=== PATIENT | male | born 1955 | race Caucasian/White ===

== ENCOUNTER 2017-08-17 13:01 | Emergency (ER) | payer OTHER ==
[~2017-08-17] VITALS: Ht 160 cm; Wt 81.7 kg
[~2017-08-17 13:01] MED LIST: HYDROCODON-ACE1 EA10 PO; METHOCARBAMOL500 MG PO
[2017-08-17] MEDS ORDERED: TAMSULOSIN HCL0.4 MG PO (13:16)
== END 2017-08-17 14:02 | disposition home or self-care (01) ==
LOC: ED 13:01
DX: S00.31XA Abrasion of nose, initial encounter (principal); S00.81XA Abrasion of other part of head, initial encounter; Z79.899 Other long term (current) drug therapy; W22.8XXA Striking against or struck by other objects, initial encounter
CPT/HCPCS: 99282

== ENCOUNTER 2021-12-20 08:32 | Emergency (ER) | payer MEDICARE, OTHER ==
[~2021-12-20] VITALS: Ht 160 cm; Wt 98.4 kg
[~2021-12-20 08:32] MED LIST changes: +TAMSULOSIN HCL0.4 MG PO
[2021-12-20] MEDS ORDERED: SILDENAFIL20 MG PO (10:50)
--- NOTE | 2021-12-21 14:54 | EKG ---
[facility] [address] [facility] [place] [address] Signed Normal sinus rhythm Minimal voltage criteria for LVH, may be normal variant ( R in aVL ) Cannot rule out Anterior infarct , age undetermined Abnormal ECG No previous ECGs available Confirmed by KATIE ALVA MD ([id number]) on 12/21/2021 2:54:03 PM Electronically Signed By: KATIE ALVA MD 12/21/21 1454 PATIENT NAME: BENITA LAUREN Electrocardiogram DATE OF : 57 PHYSICIAN: KATIE ALVA MD REPORT #: [id number] REPORT IS CONFIDENTIAL AND NOT TO BE RELEASED WITHOUT AUTHORIZATION
== END 2021-12-20 10:54 | disposition home or self-care (01) ==
LOC: ED 08:32
DX: R07.89 Other chest pain (principal); M54.12 Radiculopathy, cervical region; M19.90 Unspecified osteoarthritis, unspecified site; Z79.899 Other long term (current) drug therapy
CPT/HCPCS: 36415; 71045; 80053; 83735; 84484; 85025; 93005; 93010; 99285-25

== ENCOUNTER 2022-08-20 10:44 | Emergency (ER) | payer MEDICARE ==
[~2022-08-20] VITALS: Ht 165.1 cm; Wt 105.7 kg
[~2022-08-20 10:44] MED LIST changes: +SILDENAFIL20 MG PO
[2022-08-20] MEDS ORDERED: METFORMIN HCL500 M1 PO (11:20)
[2022-08-20] MEDS ORDERED: FINASTERIDE5 MG PO (11:21)
[2022-08-20] MEDS ORDERED: ALFUZOSIN HCL10 MG PO (11:21)
[2022-08-20] MEDS ORDERED: METHOCARBAMOL500 MG PO (11:22)
[2022-08-20] MEDS ORDERED: NAPROSYN500 MG PO (12:10)
== END 2022-08-20 12:48 | disposition home or self-care (01) ==
LOC: ED 10:44
DX: S29.011A Strain of muscle and tendon of front wall of thorax, initial encounter (principal); X58.XXXA Exposure to other specified factors, initial encounter
CPT/HCPCS: 71046; 99283-25